=== PATIENT | female | born 1995 | race Caucasian/White ===

== ENCOUNTER 2018-03-01 05:46 | Emergency (ER) | payer OTHER ==
[~2018-03-01] VITALS: Ht 172.7 cm; Wt 78.5 kg
--- NOTE | 2018-03-01 06:04 | NUR ---
PT. TO ED WITH C/O "HEART RACING". DENIES CP OR OTHER MEDICAL HX. DENIES DRUG USE. PT. ON FLIGHT HOSTESS. EKG WAS DONE IN [facility] AND PRESENTED TO CORNELIO. PT. MOTHER AT FOR SUPPORT. ZAHRAA STAHL IN TO EVAL PT. AND DISCUSS POC WITH PT. AND MOTHER.
[2018-03-01] MEDS ORDERED: LYSI100010 PO (06:09)
[2018-03-01] MEDS ORDERED: ETHI1TAB26 PO (06:09)
--- NOTE | 2018-03-01 06:22 | NUR ---
PT. AMBULATORY TO BR WITH STEADY GAIT AND BACK TO ROOM. ALL MONITORS PLACED. PT. REPORTS NO PAIN/DISCOMFORT AT THIS TIME. CALL LIGHT IN REACH. ALL SAFETY MEASURES OBSERVED.
[2018-03-01 06:43] LABS: BASOPHILS # (AUTO) 0.03 x10^3/uL (0-0.3); BASOPHILS % (AUTO) 1 % (0-1); EOSINOPHILS # (AUTO) 0.13 x10^3/uL (0-0.8); EOSINOPHILS % (AUTO) 2 % (1-7); LYMPHOCYTES # (AUTO) 3.59 x10^3/uL (1-6.1); LYMPHOCYTES % (AUTO) 54 % (22-44); MD NO; MEAN CORPUSCULAR HEMOGLOBIN 29.5 pg (27.0-34.8); MEAN CORPUSCULAR HGB CONC 35.2 g/dL (32.4-35.8); MEAN CORPUSCULAR VOLUME 83.8 fL (80-100); MEAN PLATELET VOLUME 9.1 fL (7.4-10.4); MONOCYTES # (AUTO) 0.57 x10^3/uL (0-1.4); MONOCYTES % (AUTO) 9 % (2-9); NEUTROPHILS # (AUTO) 2.35 x10^3/uL (1.8-8.0); NEUTROPHILS % (AUTO) 35 % (42-75); PLATELET COUNT 288 x10^3/uL (130-400); RED BLOOD COUNT 4.15 x10^6/uL (3.82-5.3); RED CELL DISTRIBUTION WIDTH 12.4 % (9.6-15.2)
[2018-03-01 06:52] LABS: ALBUMIN 3.6 g/dL (3.4-5.0); ANION GAP 7 mmol/L (5-15); CALCIUM 8.8 mg/dL (8.5-10.1); CHLORIDE 111 mmol/L (98-107); CREATININE 0.88 mg/dL (0.55-1.02)
[2018-03-01 06:59] LABS: T4 (THYROXINE) 13.6 mcg/dL (4.8-13.9); TROPONIN I < 0.015 ng/mL (0.000-0.045)
--- NOTE | 2018-03-01 07:20 | NUR ---
RECEIVED REPORT, CALL LIGHT IS WITHIN REACH. VERBALIZED UNDERSTANDING OF POC. VSS.
[2018-03-01 07:59] VITALS: BP 132/73
--- NOTE | 2018-03-01 08:00 | NUR ---
D/C PER MD. TP IS ALERT AND ORIENTED AND AMBULATORY WITHOUT ASSIST.
== END 2018-03-01 08:01 | disposition home or self-care (01) ==
LOC: ED 07:55
DX: R00.2 Palpitations (principal); R00.0 Tachycardia, unspecified
CPT/HCPCS: 36415; 71046; 80048; 82040; 84436; 84443; 84484; 84703; 85025; 93005; 99284

== ENCOUNTER → 2019-01-02 | Outpatient (CLI) | payer OTHER ==
[~2019-01-02] MED LIST: ETHI1TAB26 PO; LYSI100010 PO
== END | disposition home or self-care (01) ==
LOC: CFH 09:33
PROVIDERS: ATTEND Internal Medicine Cardiovascular Disease
DX: R07.9 Chest pain, unspecified (principal); I10 Essential (primary) hypertension
CPT/HCPCS: 93306

== ENCOUNTER 2019-01-30 17:55 | Emergency (ER) | payer OTHER ==
[~2019-01-30] VITALS: Ht 170.2 cm; Wt 80.7 kg
[2019-01-30] MEDS ORDERED: ACETAMINOPHEN 500 MG TABLET ONE (18:46)
[2019-01-30] MEDS ORDERED: ACETAMINOPHEN 500 MG TABLET PO ONE (19:00)
[2019-01-30 19:12] LABS: RAPID INFLUENZA A Negative (Negative); RAPID INFLUENZA B Negative (Negative)
[2019-01-30 19:23] LABS: BASOPHILS # (AUTO) 0.01 x10^3/uL (0-0.1); BASOPHILS % (AUTO) 0 % (0-1); EOSINOPHILS # (AUTO) 0.03 x10^3/uL (0-0.4); EOSINOPHILS % (AUTO) 0 % (1-7); LYMPHOCYTES # (AUTO) 1.12 x10^3/uL (1-3.4); LYMPHOCYTES % (AUTO) 9 % (22-44); MD NO; MEAN CORPUSCULAR HEMOGLOBIN 29.7 pg (27.0-34.8); MEAN CORPUSCULAR HGB CONC 33.9 g/dL (32.4-35.8); MEAN CORPUSCULAR VOLUME 87.5 fL (80-100); MEAN PLATELET VOLUME 9.4 fL (7.4-10.4); MONOCYTES # (AUTO) 0.48 x10^3/uL (0.2-0.8); MONOCYTES % (AUTO) 4 % (2-9); NEUTROPHILS # (AUTO) 10.39 x10^3/uL (1.8-6.8); NEUTROPHILS % (AUTO) 86 % (42-75); PLATELET COUNT 294 x10^3/uL (130-400); RED BLOOD COUNT 4.97 x10^6/uL (3.82-5.3); RED CELL DISTRIBUTION WIDTH 12.5 % (9.6-15.2)
[2019-01-30 19:27] LABS: ALANINE AMINOTRANSFERASE 66 U/L (12-78); ALBUMIN 4.2 g/dL (3.4-5.0); ANION GAP 6 mmol/L (5-15); CALCIUM 8.9 mg/dL (8.5-10.1); CHLORIDE 106 mmol/L (98-107); CREATININE 0.98 mg/dL (0.55-1.02)
--- NOTE | 2019-01-30 19:27 | NUR ---
pt to room from lobby
[2019-01-30 19:31] LABS: ALKALINE PHOSPHATASE 64 U/L (45-117); BILIRUBIN,TOTAL 0.9 mg/dL (0.2-1.0); TOTAL PROTEIN 7.7 g/dL (6.4-8.2)
[2019-01-30] MEDS ORDERED: ONDANSETRON ODT 4 MG ONE (19:36)
[2019-01-30] MEDS: ONDANSETRON ODT 8 MG PO ONE ×2 (19:40→20:51)
--- NOTE | 2019-01-30 19:51 | NUR ---
PT REFUSES ZOFRAN AT THIS TIME.
--- NOTE | 2019-01-30 19:51 | NUR ---
N/V/D TODAY AT HOME, NONE IN ED. PT REPORTS RELIEF FROM SYMTOMS. DENIES PAIN AND NAUSEA IN ED. SOME MILD WEAKNESS, INCREASED EARLIER TODAY. MOTHER AT BEDSIDE.
[2019-01-30] MEDS ORDERED: MORPHINE SULFATE 4 MG/ML, 1ML IVPush PRN (20:00)
[2019-01-30] MEDS ORDERED: SODIUM CHLORIDE 0.9% 1,000ML IVBOLUS ONE (20:00)
--- NOTE | 2019-01-30 20:01 | NUR ---
pt aware of need for UA
--- NOTE | 2019-01-30 20:14 | NUR ---
pt taken to ct, NAD noted.
[2019-01-30] MEDS ORDERED: OMNIPAQUE 350 MG/ML, 100ML BOTTLE ONE (20:20)
--- NOTE | 2019-01-30 20:46 | NUR ---
PT AMBULATES WELL INDEPENDENTLY TO BATHROOM.
[2019-01-30 21:10] LABS: CULTURE INDICATED? YES; MICROSCOPIC INDICATED
[2019-01-30] MEDS ORDERED: METOCLOPRAMIDE 5 MG/ML, 2ML ONE (21:20)
[2019-01-30] MEDS ORDERED: METOCLOPRAMIDE 5 MG/ML, 2ML IVPush ONE (21:30)
[2019-01-30] MEDS ORDERED: IBUPROFEN 200 MG TABLET ONE (22:04)
[2019-01-30 22:05] VITALS: BP 125/56
[2019-01-30] MEDS ORDERED: IBUPROFEN 200 MG TABLET PO ONE (22:30)
== END 2019-01-30 22:16 | disposition home or self-care (01) ==
LOC: ED 22:10
DX: K52.9 Noninfective gastroenteritis and colitis, unspecified (principal)
CPT/HCPCS: 36415; 71046; 74177; 80053; 81001; 84703; 85025; 87086; 87400; 96361; 96374; 99284; J2765; J7030; Q0162; Q9967

== ENCOUNTER 2019-06-16 13:36 | Emergency (ER) | payer OTHER ==
[~2019-06-16] VITALS: Ht 172.7 cm; Wt 81.0 kg
[2019-06-16] MEDS ORDERED: SODIUM CHLORIDE FLUSH 10ML SYR IVF ONE (14:30)
[2019-06-16 14:38] LABS: BASOPHILS # (AUTO) 0.02 x10^3/uL (0-0.1); BASOPHILS % (AUTO) 0 % (0-1); EOSINOPHILS % (AUTO) 2 % (1-7); LYMPHOCYTES # (AUTO) 2.06 x10^3/uL (1-3.4); LYMPHOCYTES % (AUTO) 30 % (22-44); MD NO; MEAN CORPUSCULAR HEMOGLOBIN 29.3 pg (27.0-34.8); MEAN CORPUSCULAR HGB CONC 34.2 g/dL (32.4-35.8); MEAN CORPUSCULAR VOLUME 85.5 fL (80-100); MEAN PLATELET VOLUME 8.6 fL (7.4-10.4); MONOCYTES # (AUTO) 0.69 x10^3/uL (0.2-0.8); MONOCYTES % (AUTO) 10 % (2-9); NEUTROPHILS # (AUTO) 3.92 x10^3/uL (1.8-6.8); NEUTROPHILS % (AUTO) 58 % (42-75); PLATELET COUNT 332 x10^3/uL (130-400); RED BLOOD COUNT 4.49 x10^6/uL (3.82-5.3); RED CELL DISTRIBUTION WIDTH 12.4 % (9.6-15.2)
[2019-06-16 14:46] LABS: ALANINE AMINOTRANSFERASE 41 U/L (12-78); ANION GAP 9 mmol/L (5-15); CALCIUM 9.4 mg/dL (8.5-10.1); CHLORIDE 110 mmol/L (98-107); CREATININE 0.88 mg/dL (0.55-1.02)
[2019-06-16 14:51] LABS: ALKALINE PHOSPHATASE 62 U/L (45-117); BILIRUBIN,TOTAL 0.2 mg/dL (0.2-1.0); TOTAL PROTEIN 8.1 g/dL (6.4-8.2); TROPONIN I < 0.015 ng/mL (0.000-0.045)
--- NOTE | 2019-06-16 15:14 | NUR ---
pt resting comfortably. nadn. no wants or needs expressed at this time. call light in reach. pt encouraged to call.
[2019-06-16 16:03] VITALS: BP 120/68
== END 2019-06-16 16:08 | disposition home or self-care (01) ==
LOC: ED 14:11
DX: R00.2 Palpitations (principal); R06.00 Dyspnea, unspecified; F41.1 Generalized anxiety disorder; I10 Essential (primary) hypertension
CPT/HCPCS: 36415; 71045; 80053; 84484; 84703; 85025; 85379; 93005; 99285